=== PATIENT | female | born 1960 | race Two or more races ===

== ENCOUNTER → 2018-11-09 | Outpatient (CLI) | payer OTHER ==
[~2018-11-09] MED LIST: ANGELIQ 0.25 M1 EACH PO; CATAFLAM50 MG PO
== END | disposition home or self-care (01) ==
LOC: NUCLEAR 14:14
DX: I65.21 Occlusion and stenosis of right carotid artery (principal)

== ENCOUNTER 2018-11-19 09:07 | Outpatient (CLI) | payer OTHER | END 2018-11-19 09:17 | disposition home or self-care (01) | LOC: MAMO-SONO 09:07 | DX: Z12.31 Encounter for screening mammogram for malignant neoplasm of breast (principal); N60.19 Diffuse cystic mastopathy of unspecified breast ==

== ENCOUNTER → 2018-11-25 | Outpatient (CLI) | payer OTHER | END | disposition home or self-care (01) | LOC: NUCLEAR 12:40 | DX: M81.0 Age-related osteoporosis without current pathological fracture (principal) ==

== ENCOUNTER 2019-10-08 11:27 | Outpatient (CLI) | payer OTHER | END 2019-10-08 11:38 | disposition home or self-care (01) | LOC: SONOGRAMA 11:27 → MAMO-SONO 11:45 | DX: E04.1 Nontoxic single thyroid nodule (principal) ==

== ENCOUNTER 2019-11-26 09:17 | Outpatient (CLI) | payer OTHER | END 2019-11-26 09:18 | disposition home or self-care (01) | LOC: MAMO-SONO 09:17 | DX: Z12.31 Encounter for screening mammogram for malignant neoplasm of breast (principal); Z12.11 Encounter for screening for malignant neoplasm of colon; Z87.898 Personal history of other specified conditions; N60.11 Diffuse cystic mastopathy of right breast; N60.12 Diffuse cystic mastopathy of left breast ==

== ENCOUNTER → 2019-12-13 | Outpatient (CLI) | payer OTHER | END | disposition home or self-care (01) | LOC: MAMO-SONO 09:45 | DX: R92.2 Inconclusive mammogram (principal) ==

== ENCOUNTER 2024-06-21 09:06 | Outpatient (CLI) | payer OTHER | END 2024-06-21 09:18 | disposition home or self-care (01) | LOC: SONOGRAMA 09:06 | PROVIDERS: ATTEND Student in an Organized Health Care Education/Training Program | DX: R10.2 Pelvic and perineal pain (principal) ==

== ENCOUNTER 2024-08-17 13:52 | Outpatient (CLI) | payer OTHER | END 2024-08-17 14:05 | disposition home or self-care (01) | LOC: SONOGRAMA 13:52 | PROVIDERS: ATTEND Family Medicine | DX: M67.441 Ganglion, right hand (principal) ==

== ENCOUNTER 2025-05-11 08:46 | Outpatient (CLI) | payer OTHER | END 2025-05-11 08:55 | disposition home or self-care (01) | LOC: MAMO-SONO 08:46 | PROVIDERS: ATTEND Family Medicine | DX: N60.11 Diffuse cystic mastopathy of right breast (principal); N60.12 Diffuse cystic mastopathy of left breast; Z12.31 Encounter for screening mammogram for malignant neoplasm of breast ==

== ENCOUNTER 2025-05-19 10:09 | Outpatient (CLI) | payer OTHER | END 2025-05-19 10:14 | disposition home or self-care (01) | LOC: NUCLEAR 10:09 | PROVIDERS: ATTEND Family Medicine | DX: M85.80 Other specified disorders of bone density and structure, unspecified site (principal); M81.0 Age-related osteoporosis without current pathological fracture ==

== ENCOUNTER 2025-07-22 14:25 | Emergency (ER) | payer OTHER ==
[~2025-07-22] VITALS: Ht 157.5 cm; Wt 50.8 kg
[2025-07-22] MEDS ORDERED: LEXAPRO5 MG PO (15:58)
[2025-07-22] MEDS ORDERED: KAPSPARGO SPRIN25 MG PO (15:59)
[2025-07-22] MEDS ORDERED: KETOROLAC TROMETHAMINE 15 MG VIAL IM ONE (17:00)
[2025-07-22] MEDS ORDERED: KETOROLAC TROMETHAMINE 30 MG VIAL ONE (17:03)
[2025-07-22] MEDS ORDERED: DICLOFENAC SODI50 MG PO (19:03)
== END 2025-07-22 20:11 ==
LOC: ER 14:25
DX: S93.692A Other sprain of left foot, initial encounter (principal); S99.922A Unspecified injury of left foot, initial encounter; W07.XXXA Fall from chair, initial encounter; Y93.89 Activity, other specified; Y92.89 Other specified places as the place of occurrence of the external cause; Y99.8 Other external cause status; Z88.1 Allergy status to other antibiotic agents
CPT/HCPCS: 73620; 96372; 99283; J1885